=== PATIENT | male | born 1965 | race Caucasian/White ===

== ENCOUNTER 2021-06-20 12:04 | Emergency (ER) | payer OTHER ==
[~2021-06-20] VITALS: Ht 182.8 cm; Wt 99.8 kg
== END 2021-06-20 14:38 | disposition home or self-care (01) ==
LOC: ED 12:04
DX: S82.202A Unspecified fracture of shaft of left tibia, initial encounter for closed fracture (principal); W18.39XA Other fall on same level, initial encounter; Y93.89 Activity, other specified; Y92.89 Other specified places as the place of occurrence of the external cause; Y99.8 Other external cause status